=== PATIENT | male | born 1965 | race Caucasian/White ===

== ENCOUNTER → 2018-02-10 | Outpatient (CLI) | payer BC ==
[2013-09-01 08:49] VITALS: BP 128/75
[~2018-02-10] MED LIST: ATOR20TA PO; TELM20TA PO
--- NOTE | 2018-02-10 15:48 | KCIC ---
Ultrasound renal complete 02/10/2018 CLINICAL INDICATION: Chronic kidney disease stage III. COMPARISON: None. FINDINGS: Partially distended urinary bladder is unremarkable. Right kidney measures 11.3 cm in length without hydronephrosis or abnormal perinephric fluid collection. There is ectasia of the abdominal aorta measuring up to 2.5 cm at the mid aspect. The visualized upper IVC is unremarkable. Left kidney measures 12.9 cm in length without hydronephrosis or abnormal perinephric fluid collection. IMPRESSION: 1. Both kidneys present without hydronephrosis. 2. Mild ectasia of the abdominal aorta. Electronically signed by: Yves Nathan MD (02/10/2018 3:44 PM) [id number]
== END | disposition home or self-care (01) ==
LOC: KCIC US 14:29
PROVIDERS: ATTEND Family Medicine
DX: I12.9 Hypertensive chronic kidney disease with stage 1 through stage 4 chronic kidney disease, or unspecified chronic kidney disease (principal); N18.3 Chronic kidney disease, stage 3 (moderate); I77.811 Abdominal aortic ectasia
CPT/HCPCS: 76770

== ENCOUNTER 2019-01-03 09:49 | Outpatient (CLI) | payer BC ==
[2019-01-03] VITALS (7 sets, daily range): BP systolic 140–145; BP diastolic 64–80
[~2019-01-03] VITALS: Ht 185.4 cm; Wt 145.1 kg
[2019-01-03 11:05] LABS: BASO % 0 % (0-3); EOS % 1 % (0-3); HEMATOCRIT 34.1 % (39.0-53.0); HEMOGLOBIN 11.4 g/dL (13.0-17.5); LYMPH # 0.2 x10^3/uL (1.0-4.8); LYMPH % 7 % (24-48); MEAN CORPUSCULAR HEMOGLOBIN 29 pg (25-35); MEAN CORPUSCULAR HGB CONC 33 g/dL (31-37); MEAN CORPUSCULAR VOLUME 86 fL (79-100); MONO # 0.2 x10^3/uL (0.0-1.1); MONO % 5 % (0-9); NEUT # 2.8 x10^3/uL (1.8-7.7); NEUT % 87 % (31-73); PLATELET COUNT 113 x10^3/uL (140-400); RED BLOOD COUNT 3.96 x10^6/uL (4.30-5.70); RED CELL DISTRIBUTION WIDTH 14.7 % (11.5-14.5); WHITE BLOOD COUNT 3.2 x10^3/uL (4.0-11.0)
[2019-01-03] MEDS ORDERED: METO50TA6 PO (11:10)
[2019-01-03] MEDS ORDERED: GABA600T7 PO (11:10)
[2019-01-03] MEDS ORDERED: ASPI-630 PO (11:10)
[2019-01-03 11:11] LABS: PROTHROMBIN TIME PATIENT 12.7 SEC (11.7-14.0)
[2019-01-03] MEDS ORDERED: HEPARIN PF 500 UNIT/5 ML DISP.SYRIN. IV ONE ×2 (12:01→12:45)
[2019-01-03] MEDS ORDERED: LIDOCAINE 1%/EPI 1:100,000 20 ML VIAL. ONE (12:01)
[2019-01-03] MEDS ORDERED: MIDAZOLAM HCL/PF 2 MG/2 ML VIAL. ONE (12:10)
[2019-01-03] MEDS ORDERED: fentaNYL PF VIAL 100 MCG/2 ML VIAL ONE (12:10)
[2019-01-03 12:29] LABS: % BANDS 3 % (0-9); % LYMPHS 5 % (24-48); % MONOS 3 % (0-10); % SEGS 89 % (35-66); PLT ESTIMATE DECREASED (ADEQUATE)
[2019-01-03] MEDS ORDERED: LIDOCAINE 1%/EPI 1:100,000 20 ML VIAL. SQ ONE (12:45)
[2019-01-03] MEDS ORDERED: MIDAZOLAM HCL/PF 2 MG/2 ML VIAL. IV ONE (12:45)
[2019-01-03] MEDS ORDERED: fentaNYL PF VIAL 100 MCG/2 ML VIAL IV ONE (12:45)
--- NOTE | 2019-01-03 12:46 | PDOC ---
MODERATE SEDATION ASSESSMENT RISKS/ALTERNATIVES Risks/Alternatives Risks and alternatives of this type of sedation and procedure discussed with: RISK/ALTERNATIVES: Patient H & P ON CHART H & P H & P on chart and reviewed for co-morbid conditions and appropriate labs. H&P ON CHART: Yes STATUS PREG STATUS ASSESSED: Yes MEDS/ALLERGIES REVIEWED Meds/Allergies Reviewed Medications and Allergies including time and route of recently administered narcotics and sedatives. MEDS/ALLERGIES REVIEWED: Yes ASA RATING ASA RATING: II AIRWAY ASSESSMENT Airway Assessment Airway patency, oral function limitations, presence of caps, crowns, dentures, partials, and ability to extend neck assessed. AIRWAY ASSESSMENT: Yes MALLAMPATI SCORE MALLAMPATI SCORE: II PRE-SEDATION ASSESSMENT PRE-SEDATION ASSESSMENT: Yes HARRIET RANDHAWA MD Jan 03, 2019 12:46
--- NOTE | 2019-01-03 12:46 | PDOC ---
BRIEF OPERATIVE NOTE Pre-Op Diagnosis CLL Post-Op Diagnosis same Procedure Performed Port Surgeon Murtaza Anesthesia Type: Conscious Sedation Findings Port Complications no immediate HARRIET RANDHAWA MD Jan 03, 2019 12:46
--- NOTE | 2019-01-03 12:46 | PDOC1 ---
History and Physical Date of Procedure Date of Admission History of Present Illness Reason for Visit Adult male with cll Past Medical History Past Medical History see nursing pre-op assessment Current Medications Current Medications Current Medications Cefazolin Sodium 50 ml @ 100 mls/hr 1X ONCE IV ; Start 01/03/19 at 10:30; Stop 01/03/19 at 12:07; Status DC Lidocaine/ Epinephrine (LIDOCAINE 1%-EPI 1:100,000 Multi-Dose) 20 ml STK-MED ONCE .ROUTE ; Start 01/03/19 at 12:01; Stop 01/03/19 at 12:01; Status DC Heparin Sodium (Porcine) (Hep Lock Adult) 500 unit STK-MED ONCE IV ; Start 01/03/19 at 12:01; Stop 01/03/19 at 12:02; Status DC Cefazolin Sodium/ Dextrose 50 ml @ 100 mls/hr 1X ONCE IV ; Start 01/03/19 at 12:15; Stop 01/03/19 at 12:44; Status DC Midazolam HCl (Versed) 2 mg STK-MED ONCE .ROUTE ; Start 01/03/19 at 12:10; Stop 01/03/19 at 12:10; Status DC Fentanyl Citrate (Fentanyl 2ml Vial) 100 mcg STK-MED ONCE .ROUTE ; Start 01/03/19 at 12:10; Stop 01/03/19 at 12:11; Status DC Active Scripts Active Reported Aspirin 81 Mg Tab.chew 1 Tab PO DAILY Metoprolol Tartrate 50 Mg Tablet 1 Tab PO BID Gabapentin 600 Mg Tablet 600 Mg PO BID Lipitor (Atorvastatin Calcium) 20 Mg Tablet 80 Mg PO DAILY Allergies Allergies: Coded Allergies: No Known Drug Allergies (Unverified , 09/01/13) Physical Exam Vital Signs Vital Signs Date Time Temp Pulse Resp B/P (MAP) Pulse Ox O2 Delivery O2 Flow Rate FiO2 01/03/19 10:53 97.7 91 16 141/80 (100) 95 Room Air 97.7 Other see nursing pre-op assessment Assessment Assessment CLL Plan Plan HARRIET Juarez MD Jan 03, 2019 12:46
--- NOTE | 2019-01-03 14:29 | NUR ---
pt discharged home with family. Instructions reviewed with pt. GENEVIEVE dcd. pt tolerated PO
--- NOTE | 2019-01-03 14:37 | RAD ---
Procedure: Port-A-Cath placement Clinical Indication: 53-year-old requiring chemotherapy Sedation: Conscious sedation was administered with a total intraprocedural [id number] time of 20 minutes. The patient was monitored by a qualified independent observer throughout the time of sedation. Please refer to the medical record for exact doses of medications utilized to achieve moderate sedation. Antibiotics: Antibiotic was administered intravenously within 1 hour of the procedure start time. Exposure: Fluoro Time: 0.2 minutes Images: 1 Contrast: None Sterility: All elements of maximal sterile barrier technique including the use of a cap, mask, sterile gown, sterile gloves, large sterile sheet, appropriate hand hygiene, and 2% chlorhexidine for cutaneous antisepsis (or acceptable alternative antiseptic per current guidelines) were followed for this procedure. Consent: The procedure was explained in its entirety to the patient or the patients designated applications sales representative by a member of the treatment team, including a discussion of the risks, benefits and commonly accepted alternatives to the procedure, as well as the expected consequences of no therapy whatsoever. Discussion of the risks included, but was not limited to, those that are most frequent and those that are rare but possibly severe or life-threatening, as well as the possibility of unforeseen complications. Technique and Findings: Ultrasound interrogation of the right neck revealed patency and compressibility of the internal jugular vein. A hardcopy ultrasound image was recorded as a 21-gauge micropuncture needle was used to gain access to this vessel. The needle was exchanged over a wire for a peel-away sheath. The skin over the ipsilateral anterior chest wall was then copiously anesthetized with 1% lidocaine plus epinephrine, and a small dermatotomy was made. Blunt dissection techniques were used to create a pocket for the port. The port was then tunneled subcutaneously towards the neck dermatotomy then deployed under fluoroscopic guidance through the peel-away sheath such that the distal tip resided in the proximal right atrium. The port was accessed and found to flush and aspirate with ease. The port was packed with heparin. The pocket was copiously irrigated with sterile saline then closed with deep interrupted and running subcuticular 4-0 Vicryl suture. Dermabond was used to close the neck dermatotomy. Complications: No immediate Impression: 1. Port-A-Cath placement as described.
== END 2019-01-03 14:30 | disposition home or self-care (01) ==
LOC: INTRAD 09:49
PROVIDERS: ATTEND Internal Medicine Hematology & Oncology
DX: Z45.2 Encounter for adjustment and management of vascular access device (principal); C83.30 Diffuse large B-cell lymphoma, unspecified site; Z79.82 Long term (current) use of aspirin
CPT/HCPCS: 36415; 36561; 76937; 77001; 85025; 85610; 99152; C1751; C1769; C1892; 85007; 99153

== ENCOUNTER 2019-10-23 08:15 | Outpatient (CLI) | payer BC ==
[~2019-10-23] VITALS: Ht 185.4 cm; Wt 131.5 kg
[~2019-10-23 08:15] MED LIST changes: +ASPI-630 PO; +GABA600T7 PO; +METO50TA6 PO
[2019-10-23 08:45] VITALS: BP 136/84
[2019-10-23] MEDS ORDERED: LIDOCAINE 1%/EPI 1:100,000 20 ML VIAL. ONE (08:58)
[2019-10-23] MEDS ORDERED: GABA300C18 PO (09:04)
[2019-10-23 09:21] LABS: BASO % 0 % (0-3); EOS % 1 % (0-3); HEMATOCRIT 45.4 % (39.0-53.0); HEMOGLOBIN 15.2 g/dL (13.0-17.5); LYMPH # 0.8 x10^3/uL (1.0-4.8); LYMPH % 25 % (24-48); MEAN CORPUSCULAR HEMOGLOBIN 28 pg (25-35); MEAN CORPUSCULAR HGB CONC 34 g/dL (31-37); MEAN CORPUSCULAR VOLUME 85 fL (79-100); MONO # 0.4 x10^3/uL (0.0-1.1); MONO % 12 % (0-9); NEUT % 63 % (31-73); PLATELET COUNT 79 x10^3/uL (140-400); RED BLOOD COUNT 5.36 x10^6/uL (4.30-5.70); RED CELL DISTRIBUTION WIDTH 15.3 % (11.5-14.5); WHITE BLOOD COUNT 3.2 x10^3/uL (4.0-11.0)
[2019-10-23 09:33] LABS: PROTHROMBIN TIME PATIENT 13.2 SEC (11.7-14.0)
[2019-10-23] MEDS ORDERED: LIDOCAINE 1%/EPI 1:100,000 20 ML VIAL. SQ ONE (10:00)
[2019-10-23 10:38] VITALS: BP 141/79
--- NOTE | 2019-10-23 10:41 | RAD ---
10/23/2019 8:37 AM Fluoroscopically guided removal right internal jugular PowerPort Indication: No longer requires chemotherapy access Discussion: The risks and benefits of the procedure were discussed the patient. Informed consent was obtained. A timeout procedure was performed. The right chest was prepped and draped using maximum sterile barrier technique. All elements of maximal sterile barrier technique including the use of a cap, mask, sterile gown, sterile gloves, large sterile sheet, appropriate hand hygiene, and 2% chlorhexidine for cutaneous antisepsis (or acceptable alternative antiseptic per current guidelines) were followed for this procedure. Fluoroscopic imaging demonstrates the port to be normal in position. 1% lidocaine was administered for local anesthesia. Small incision was made overlying the port reservoir. Pooler and catheter removed seemingly intact. This is confirmed by fluoroscopy. The wound was closed in layers using 4-0 Vicryl suture. A sterile dressing was applied. No immediate complications were identified. No sedation Total fluoroscopy time 0.9 min Dose area product 1 Gycm2 Impression: Removal of right internal jugular PowerPort
--- NOTE | 2019-10-23 10:45 | NUR ---
Discharge Note: ALEXUS LOPEZ Discharge instructions and discharge home medications reviewed with Patient and a copy given. All questions have been answered and understanding verbalized. No sedation for this procedure. The following instructions and handouts were given: Surgical site care. Discontinued lines and drains: No IV this visit. Patient discharged to home with friend.
[2019-10-23 10:53] VITALS: BP 133/85
== END 2019-10-23 11:00 | disposition home or self-care (01) ==
LOC: INTRAD 08:15
PROVIDERS: ATTEND Internal Medicine Hematology & Oncology
DX: Z45.2 Encounter for adjustment and management of vascular access device (principal); C85.10 Unspecified B-cell lymphoma, unspecified site
CPT/HCPCS: 36415; 36590; 77001; 85025; 85610; J3490